=== PATIENT | male | born 2000 | race African-American/Black ===

== ENCOUNTER 2020-09-26 11:01 | Emergency (ER) | payer OTHER ==
[~2020-09-26] VITALS: Ht 170.2 cm; Wt 66.2 kg
--- NOTE | 2020-09-26 11:12 | Emergency Room Report ---
History of Present Illness General Chief Complaint: Upper Extremity Injury Source: Patient Present Illness HPI Patient is a 20-year-old male with past medical history of brachial plexus injury and Marquita-Schlatter who presents emergency department coming from work secondary to shoulder strain x2 months. 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 He tried taking Tylenol last night which moderately alleviated his symptoms, however when he was at work today he noticed worsening soreness so he told his boss who referred him here for Workmen's Comp. He denies any fall, trauma, headache, neck pain, midline back pain, nausea, vomiting, chest pain, hemoptysis, shortness of breath, numbness/paresthesia or any other symptoms. The patient's symptoms were acute on chronic onset, severity was moderate, duration since 60 days . Quality: aching Past medical history: Marquita-Schlatter Past surgical history: Denies Smoking: Denies Alcohol use: Denies Drug use: Denies Review of systems: CONST: No fevers or chills, No night sweats PULMONARY: No productive cough, No shortness of breath CARDIAC: No chest pain, No palpitations GI: No vomiting, No diarrhea , No melena_or_BRBPR : No dysuria, No hematuria, No discharge NEURO: No new_focal_weakness_or_numbness, No confusion, No vision changes 14 point Review of Systems is otherwise negative except per HPI Physical Exam: GENERAL: Awake_alert_ nontoxic, no acute distress Spo2 98% on RA -normal EYES: Extraocular muscles are intact. Conjunctivae clear. Lids without swelling ENT: External nose and ear normal_in_appearance. Oropharynx clear. Head_atr aumatic, Moist_oral_mucosa NECK: No JVD. No meningismus. No thyromegaly. Supple. Trachea midline RESP: Normal respiratory effort. Symmetric rise. No stridor. Clear_to_auscultation_No_rales_No_wheezes CARDIAC: Regular rate and regular rhytm. No_significant pedal edema. ABDOMEN: Soft. Nondistended. Nontender_No_rebound_or_guarding. MSK: Normal muscle tone, without rigidity. Extremities without asymmetric deformity or swelling. Upper extremity exam: Bilateral Trapezius hypertonicity bilaterally. No pain out of proportion with range of motion in the shoulders bilaterally. Elbow: No swelling / effusion appreciated, no significant pain with passive range of motion Wrist: No swelling / effusion appreciated, no significant pain with passive range of motion Lateral epicondyle: no tenderness / swelling / ecchymoses Medial epicondyle: no tenderness / swelling / ecchymoses Radial pulse: 2+ Capillary refill: <3 seconds in all fingers All fingers: full range of motion without any tenderness / swelling / deformity / evidence of infection Scaphoid: no tenderness / swelling / ecchymoses, no pain with axial loading of the thumb Radian / Median / Ulnar nerves: all intact (finger opposition, finger adduction / abduction, thumb dorsiflexion) Sensation intact to light touch: in all fingers Strength 5/5 with: wrist dorsi / volar flexion, hand supervisor assembly stock, elbow flexion / extension SKIN: Warm and dry. No visible cyanosis or pallor NEUROLOGIC: Alert, oriented x3. Motor_and_sensation_grossly_intact. No truncal ataxia. Gait_normal Psych: Normal mood and affect, normal judgment and insight - COORDINATION OF CARE Case was discussed with: Patient Medical Decision Making/Plan: Differential diagnosis includes musculoskeletal pain/strain, fracture, dis location, compartment syndrome, arterial occlusion, nerve damage, among others. Patient is here with 2 months of atraumatic shoulder strain. Distally the patient has capillary refill <2 seconds and strong pulses. There is no pallor or pain out of proportion to exam. There is no significant swelling, deformity, or report of significant dislocation that subsequently reduced. No evidence of arterial occlusion or injury. The associated joints have full range of motion without any significant pain or restriction in mobility. No evidence at this time of major ligamentous disruption. No physical exam or history to suggest fracture, dislocation, foreign body, significant nerve damage. No evidence of compartment syndrome at this time. X-rays are not indicated at this time. I had initially ordered Toradol and Robaxin, however patient states that he has a long drive home and is declining medications his time. Will advise avoidance of heavy lifting, rest, heat pack, NSAIDs at home. I will give him short course of Robaxin at home and advised him not to take this and drive or combine with alcohol as it is potentially sedating. Patient ve rbalizes his understanding. Workman comp form filed Pertinent results reviewed with the patient. I educated the patient on the current treatment plan including the risks, benefits, and alternatives. I also discussed the extent and limitations of the current evaluation. The patient expressed understanding and agreement with plan. I recommended PMD follow-up within 1-2 days. Also advised that the patient return to the Emergency Department as soon as possible if they experience any new, persistent, or worsen ing symptoms. Allergies: Coded Allergies: No Known Allergies (Unverified , 09/26/20) COVID-19 Screening Contact w/high risk pt: No Experienced COVID-19 symptoms?: No COVID-19 Testing performed RN IMCU: No Nursing Documentation-PM Past Medical History: No Stated History Physical Exam Vital Signs Date Time Temp Pulse Resp B/P (MAP) Pulse Ox O2 Delivery O2 Flow Rate FiO2 09/26/20 11:07 97.9 73 18 128/43 (71) 95 Room Air Sp02 EP Interpretation: reviewed, normal Medical Decision Making Diagnostic Impression: Primary Impression: Muscle spasm Additional Impressions: Right shoulder strain Left shoulder strain Last Vital Signs Date Time Temp Pulse Resp B/P (MAP) Pulse Ox O2 Delivery O2 Flow Rate FiO2 09/26/20 11:07 97.9 73 18 128/43 (71) 95 Room Air Disposition: HOME, SELF-CARE Admit Decision Time: 11:23 Condition: Stable Scripts Naproxen* (NAPROXEN*) 500 Mg Tablet.dr 500 MG ORAL TWICE A DAY for 10 Days, #20 TAB Prov: Demetrice Earl D.O. 09/26/20 Methocarbamol* (ROBAXIN-750*) 750 Mg Tablet 750 MG PO TID, #21 TAB 0 Refills Prov: Demetrice Earl D.O. 09/26/20 Departure Forms: Return to Work Return to Work in (Days): 7 Return to Work Date: Oct 03, 2020 Other Restrictions: No heavy lifting greater than 15 pounds Patient Instructions: Muscle Cramps and Spasms, [id number], Shoulder Pain, [id number] Additional Instructions: Instructions for patient/dean of admissions: Follow up with your physician in 1-2 days. Do not take muscle relaxant with alcohol. Do not take muscle relaxant and drive. Robaxin is potentially sedating. Follow-up with your doctor sooner if your condition requires a more timely clinical reevaluation. Return to the emergency department immediately if you feel that your condition is worsening or if you have any new or concerning symptoms. Review your discharge instructions and take any prescriptions given as instructed. [facility] PROVIDES FREE OR LOW-COST HEALTH SERVICES TO PEOPLE WHO CAN SHOW PROOF THAT THEY LIVE IN [facility]. TO FIND MORE CLINICS PARTNERED WITH [facility] TO PROVIDE SERVICE, PLEASE CALL . Demetrice Earl D.O. Sep 26, 2020 11:12
--- NOTE | 2020-09-26 11:13 | NUR ---
ED Nurse Note: c/o bilateral shoulder pain for two months. works at [employer] lifting, yesterday he had alot of pain that radiated down to his hands and couldn't sleep last night.
[2020-09-26 11:15] VITALS: BP 128/43
[2020-09-26] MEDS ORDERED: NAPROXEN500 M1 ORAL (11:24)
[2020-09-26] MEDS ORDERED: ROBAXIN-750750 MG PO (11:24)
== END 2020-09-26 12:00 | disposition home or self-care (01) ==
LOC: EMR 11:15
DX: S46.912A Strain of unspecified muscle, fascia and tendon at shoulder and upper arm level, left arm, initial encounter (principal); S46.911A Strain of unspecified muscle, fascia and tendon at shoulder and upper arm level, right arm, initial encounter; M62.838 Other muscle spasm; M92.529 Juvenile osteochondrosis of tibia tubercle, unspecified leg; X50.0XXA Overexertion from strenuous movement or load, initial encounter; X50.9XXA Other and unspecified overexertion or strenuous movements or postures, initial encounter; Y93.89 Activity, other specified; Y92.512 Supermarket, store or market as the place of occurrence of the external cause
CPT/HCPCS: 99282